=== PATIENT | male | born 1965 | race Caucasian/White ===

== ENCOUNTER 2020-06-05 14:42 | Emergency (ER) | payer BC, SELFPAY ==
[2020-06-05 14:56] VITALS: BP 151/86; PULSE 66; RESP 20; TEMP 36.9; O2SAT 98
--- NOTE | 2020-06-05 15:23 | ED.GENADULT ---
HPI - General Adult General Chief complaint: Abdominal Pain Stated complaint: stomach pain Time Seen by Provider: 06/05/20 15:23 Source: patient and RN notes reviewed Mode of arrival: ambulatory Limitations: no limitations History of Present Illness HPI narrative: 54-year-old male presents with concern for increased amount of belching, gagging, heartburn, belching up phlegm. He reports during these episodes he also has increased rhinorrhea. He denies chest pain, diaphoresis, shortness of breath, left arm pain, nausea, vomiting, diarrhea, constipation. Reports he can feel a bubble of gas coming from his stomach which causes pain, however after he belches the pain goes away. He has been driving from [place] to [place], and has had a poor diet. MD complaint: Abdominal pain Related Data Allergies Allergy/AdvReac Type Severity Reaction Status Date / Time Penicillins Allergy Swelling Verified 06/05/20 15:00 of Lip/Tongue/Throat Review of Systems Review of Systems: Narrative: CONSTITUTIONAL: Denies malaise, chills, sweats, or fever. CARDIOVASCULAR: Denies chest pain, palpitations, or edema. RESPIRATORY: Denies cough or dyspnea. GASTROINTESTINAL: Denies abdominal pain, nausea, vomiting, diarrhea, bloody, or mucous stools. Reports heartburn, belching, indigestion, epigastric pain with episodes of indigestion that resolves with belching MUSCULOSKELETAL: Denies left arm pain or myalgia. All systems reviewed & are unremarkable except as noted in HPI and below PMFSH Comments At time of signature, agree with nursing past medical, surgical, social and family history. There is no relevant family history pertinent to the presenting complaint Exam Narrative: Exam Narrative: GENERAL: Well-appearing, well-nourished, and in no acute distress. HEAD: Normocephalic, atraumatic. EYES: PERRLA, conjunctivae clear, and EOMI. ENT: Nares clear, turbinates pink, no rhinorrhea or epistaxis. Mucous membranes moist. Oropharynx without edema, erythema, or lesions. Tonsils not enlarged and without exudate. NECK: Supple. No lymphadenopathy CHEST: Speaks in full sentences. No respiratory distress. HEART: Regular rate and rhythm. ABDOMEN: Soft, obese. No guarding, rebound tenderness, or rigid. No pulsatilla masses. Bowel sounds present in all four quadrants. No organomegaly. Negative Cat?s sign. SKIN: Warm, dry, no rash. NEURO: Alert and oriented x3. PSYCH: Normal mood and affect Course Course Emergency Course: Patient is aware of diagnosis, understands and agrees to treatment plan. Anticipatory guidance given. Patient agrees to follow-up as directed and is aware of reasons to seek care at the emergency department. Portions of this record may have been created with voice recognition software Vital Signs Vital signs: Vital Signs Temperature 98.5 F 06/05/20 14:56 Pulse Rate 66 06/05/20 14:56 Respiratory Rate 20 06/05/20 14:56 Blood Pressure 151/86 H 06/05/20 14:56 Pulse Oximetry 98 06/05/20 14:56 Temperature 98.5 F 06/05/20 14:56 Pulse Rate 66 06/05/20 14:56 Respiratory Rate 20 06/05/20 14:56 Blood Pressure 151/86 H 06/05/20 14:56 Pulse Oximetry 98 06/05/20 14:56 Reviewed. Pt has been instructed to follow up with his primary care provider within the next week regarding his elevated blood pressure today. Medical Decision Making MDM Narrative Medical decision making narrative: Exam findings show no acute concerns or changes; patient is non-toxic appearing and is in no distress. Patient is appropriate for outpatient treatment and follow-up. Vital Signs Vital Signs: Vital Signs Temperature 98.5 F 06/05/20 14:56 Pulse Rate 66 06/05/20 14:56 Respiratory Rate 20 06/05/20 14:56 Blood Pressure 151/86 H 06/05/20 14:56 Pulse Oximetry 98 06/05/20 14:56 Temperature 98.5 F 06/05/20 14:56 Pulse Rate 66 06/05/20 14:56 Respiratory Rate 20 06/05/20 14:56 Blood Pressure 151/86
== END 2020-06-05 15:45 | disposition home or self-care (01) ==
PROVIDERS: Emergency Provider Nurse Practitioner
DX: K30 Functional dyspepsia (principal)
CPT/HCPCS: 99203; G0463